=== PATIENT | male | born 1940 | race Two or more races ===

== ENCOUNTER 2018-08-10 11:15 | Inpatient (IN) | payer OTHER ==
[~2018-08-10] VITALS: Ht 175.3 cm; Wt 74.4 kg
[2018-08-10] MEDS ORDERED: DILATIAZEM PO (16:24)
[2018-08-10] MEDS ORDERED: AVAPRO300 MG PO (16:25)
[2018-08-16] MEDS ORDERED: CARDIZEM CD120 MG PO (08:01)
[2018-08-17] MEDS ORDERED: DOCUSATE SODIU100 MG PO (08:11)
[2018-08-17] MEDS ORDERED: CLONAZEPAM0.5 M1 PO (08:13)
[2018-08-17] MEDS ORDERED: PERCOCET 5-3251 EACH PO (08:13)
== END 2018-08-17 14:31 | disposition home or self-care (01) | DRG 454 ==
LOC: SURH 08-16 04:30 → O/R 08-16 04:30 → RECOVERY 08-16 07:00 → SURH 08-16 12:06
PROVIDERS: ADMIT Orthopaedic Surgery Orthopaedic Surgery of the Spine
PROC: 0RG2071 Fusion of 2 or more Cervical Vertebral Joints with Autologous Tissue Substitute, Posterior Approach, Posterior Column, Open Approach (ICD-10-PCS; 2018-08-16)
PROC: 0RT30ZZ Resection of Cervical Vertebral Disc, Open Approach (ICD-10-PCS; 2018-08-16)
PROC: 07DS3ZZ Extraction of Vertebral Bone Marrow, Percutaneous Approach (ICD-10-PCS; 2018-08-16)
PROC: 4A12X4Z Monitoring of Cardiac Electrical Activity, External Approach (ICD-10-PCS; 2018-08-16)
PROC: 0RG20A0 Fusion of 2 or more Cervical Vertebral Joints with Interbody Fusion Device, Anterior Approach, Anterior Column, Open Approach (ICD-10-PCS; principal; 2018-08-16 07:00)
DX: M47.12 Other spondylosis with myelopathy, cervical region (principal); M50.021 Cervical disc disorder at C4-C5 level with myelopathy; I10 Essential (primary) hypertension